=== PATIENT | male | born 1970 | race American Indian/Alaskan Native ===

== ENCOUNTER 2017-05-27 21:38 | Emergency (ER) | payer OTHER ==
[2017-05-27 23:55] VITALS: BP 127/85
--- NOTE | 2017-05-28 01:04 | XRay Report ---
FINAL REPORT EXAM: XR ELBOW 2V LT HISTORY: Pain. TECHNIQUE: Lateral and oblique radiographs of the left elbow were obtained. No prior studies are available for comparison. FINDINGS: There is no fracture or dislocation. There is mild focal spurring at the olecranon process, adjacent to the distal triceps tendon insertion site. There is no significant joint effusion. No other discrete osseous abnormality is seen. IMPRESSION: Mild focal spurring at the olecranon, adjacent to the distal triceps tendon insertion site. No fracture, dislocation, or significant joint effusion.
== END 2017-05-28 01:27 | disposition left against medical advice (07) ==
LOC: ED 21:38
DX: Z04.3 Encounter for examination and observation following other accident (principal); Z53.21 Procedure and treatment not carried out due to patient leaving prior to being seen by health care provider